=== PATIENT | female | born 1950 | race Caucasian/White ===

== ENCOUNTER 2016-09-13 14:20 | Outpatient (RCR) | payer OTHER ==
--- NOTE | 2016-10-11 07:58 | RADONC ---
RADIATION ONCOLOGY PROGRESS NOTE DATE: 10/10/2016 Ms. Peoples is presently at a dose of 1980 cGy to her left breast and is tolerating treatments quite well at this point with no complaints related to her radiation therapy. She is having no breast or bone pain. The patient's review of systems is noncontributory. She denies nausea, vomiting, fevers, chills, night sweats, diplopia, headaches, anxiety or depression, anorexia, weight loss, visual disturbances, chest pain, urinary or bowel difficulties, bone pain, or neurological problems. PHYSICAL EXAMINATION: The patient's skin is in good condition with no evidence of moist or dry desquamation. The remainder of her physical exam remains unchanged. Ms. Peoples is tolerating treatments quite well and radiation will continue as scheduled.
== END 2016-10-11 ==
LOC: M ONCR 14:20
PROVIDERS: ATTEND Radiology Radiation Oncology
DX: C50.812 Malignant neoplasm of overlapping sites of left female breast (principal)

== ENCOUNTER → 2016-09-13 | Outpatient (REF) | payer OTHER ==
[2016-09-13 21:01] LABS: CARCINOEMBRYONIC ANTIGEN 1.5 NG/ML (<2.5)
== END ==
LOC: M LAB REF 17:49
PROVIDERS: ATTEND Internal Medicine Medical Oncology
DX: C50.919 Malignant neoplasm of unspecified site of unspecified female breast (principal)

== ENCOUNTER → 2016-09-14 | Outpatient (CLI) | payer MEDICARE | END | disposition home or self-care (01) | LOC: M RAD 13:52 | PROVIDERS: ATTEND Radiology Radiation Oncology | DX: C50.919 Malignant neoplasm of unspecified site of unspecified female breast (principal) ==

== ENCOUNTER → 2016-09-27 | Outpatient (CLI) | payer MEDICARE ==
--- NOTE | 2016-09-29 14:27 | DEXA ---
AP SPINE L1 - L4 1.092 -0.8 0.5 LT FEMUR TOTAL 0.745 -2.1 -1.0 RT FEMUR TOTAL 0.652 -2.8 -1.8 TOTAL BODY TOTAL OTHER DUAL FEMUR FRAX* ASSESSMENT Risk factors: None. 10 year probability of fracture Major osteoporotic fracture 14.0% Hip fracture 3.2 % COMMENTS: Normal bone densitometry of the spine. There is low bone density of the left hip. There is osteoporosis of the right hip. There is degenerative change in the spine which may artificially elevate the BMD. FOLLOW-UP: Recommendation for the next bone density exam: 2 years. SKY
== END ==
LOC: M WHC 14:23
PROVIDERS: ATTEND Internal Medicine Medical Oncology
DX: C50.919 Malignant neoplasm of unspecified site of unspecified female breast (principal); M81.0 Age-related osteoporosis without current pathological fracture

== ENCOUNTER → 2016-09-27 | Outpatient (CLI) | payer MEDICARE ==
[~2016-09-27] MED LIST: ISOVUE-370 76% 100ML VIAL (Q9967) As Ordered ONE
--- NOTE | 2016-09-27 17:05 | REP ---
CT abdomen and pelvis 09/27/2016, performed without as well as with IV contrast and delayed postcontrast imaging of the abdomen. Indication: Staging breast cancer. Comparison: None. Technique: Initially, unenhanced CT of the abdomen was performed. Following IV contrast injection of 100 ml Isovue 370 mg/ml IV, 3 mm contiguous spiral axial sections were performed through the abdomen and pelvis in the portal venous phase. 1 minute delayed images were subsequently performed of the abdomen. Findings: 11.5 mm cyst is present in the inferior most portion of posterior segment right lobe of liver. Liver is enlarged, 20 cm in craniocaudal dimension. A few small hypodensities within the spleen do fill in with contrast and delayed imaging and are most compatible with areas of sinusoidal infiltration. Pancreas, gallbladder, and adrenal glands are normal. There are small bilateral extrarenal pelves. 4.7 cm hiatal hernia is identified. Small bowel is without obstruction. Terminal ileum and appendix are normal. There are no pathologically enlarged retroperitoneal lymph nodes or pelvic adenopathy. Bladder is unremarkable. Uterus is absent. There is moderate sigmoid diverticulosis. Mural thickening is seen within the distal transverse colon and splenic flexure, which may be secondary to spasm or less likely fixed narrowing. There is no free air or ascites. Advanced degenerative disc changes are noted L2-3 and L5-S1. Impression 1. 11.5 mm cyst present within the inferior most portion of posterior segment right lobe of the liver. A few small hypodense foci within the spleen, which partially fill in contrast over time, likely areas of sinusoidal infiltration. 2. 4.7 cm retrocardiac hiatal hernia. 3. Moderate sigmoid diverticulosis. 4. Transient mural thickening in distal transverse and proximal sigmoid colon are most compatible with spasm and less likely fixed narrowing. follow up is recommended. 5. Hepatomegaly with liver 20 cm in length. Unreviewed MTDD
--- NOTE | 2016-09-27 18:00 | REP ---
CT chest with IV contrast, 09/27/2016: Indication: Staging breast cancer. Comparison: None. Technique: Following IV contrast administration with 100 ml Isovue 370 mg/ml, 3 mm contiguous spiral axial sections were performed through the chest. Findings: The thoracic aorta is without aneurysm or dissection. The heart is of normal size. There are no pathologically enlarged mediastinal or hilar nodes. A small amount of biapical pleural parenchymal disease is most compatible with fibrotic scarring. 2 mm calcified granuloma is present within the right apex on image 18, series 504. Ground glass type patchy bibasilar interstitial infiltrates are seen with lower lobe and peripheral predominance. There are no pleural effusions. There are no visualized lytic or blastic lesions of bone. Multiple surgical clips are seen within the left axilla. Postsurgical changes are also seen in the left breast and there is left circumareolar skin thickening. Impression 1. No pathologically enlarged mediastinal or hilar adenopathy. Patchy interstitial type infiltrates and/or scarring noted with lower lobe and peripheral predominance bilaterally. 2. 2 mm calcified granuloma within the anterior right lung apex. 3. Postsurgical changes within the left axilla and in the left breast. 4. 4.7 cm retrocardiac hiatal hernia. Signed by Dali Bliss MD 09/27/2016 09:52 P
== END ==
LOC: M RAD 15:25
PROVIDERS: ATTEND Internal Medicine Medical Oncology
DX: C50.919 Malignant neoplasm of unspecified site of unspecified female breast (principal); K57.30 Diverticulosis of large intestine without perforation or abscess without bleeding; M51.36 Other intervertebral disc degeneration, lumbar region; M51.37 Other intervertebral disc degeneration, lumbosacral region; K44.9 Diaphragmatic hernia without obstruction or gangrene; R16.0 Hepatomegaly, not elsewhere classified; K76.89 Other specified diseases of liver; M81.0 Age-related osteoporosis without current pathological fracture
CPT/HCPCS: 71260; 74178; 77080; Q9967

== ENCOUNTER 2016-10-12 11:17 | Outpatient (RCR) | payer MEDICARE ==
--- NOTE | 2016-10-18 13:30 | RADONC ---
RADIATION ONCOLOGY PROGRESS NOTE DATE: 10/17/2016 CHART NUMBER: [id number] Ms. Peoples is presently at a dose of 2880 cGy to her left breast and is tolerating treatments quite well at this point with no complaints related to her radiation therapy. She is having no breast or bone pain. The patient's review of systems is noncontributory. She denies nausea, vomiting, fevers, chills, night sweats, diplopia, headaches, anxiety or depression, anorexia, weight loss, visual disturbances, chest pain, urinary or bowel difficulties, bone pain, or neurological problems. PHYSICAL EXAMINATION: The patient's skin is in good condition with no evidence of moist or dry desquamation. The remainder of her physical exam remains unchanged. Ms. Peoples is tolerating treatments quite well, and radiation will continue as scheduled.
[2016-10-20] MEDS ORDERED: SILV-4 TOP (11:27)
--- NOTE | 2016-10-25 11:11 | RADONC ---
RADIATION ONCOLOGY PROGRESS NOTE DATE: 10/24/2016 CHART NUMBER: [id number] Ms. Peoples is thus far at a dose of 3060 centigrade and was last treated on 10/19/2016. She is presenting today for reevaluation prior to reinitiation of treatment. The patient reports that her skin feels better at this time and she is having less discomfort. She is continuing to use the Silvadene cream as prescribed. REVIEW OF SYSTEMS: The patient's review of systems is positive for some continued tenderness in the inframammary region but is otherwise noncontributory. Denies nausea, vomiting, fevers, chills, night sweats, diplopia, headaches, anxiety or depression, anorexia, weight loss, visual disturbances, chest pain, urinary or bowel difficulties, bone pain, or neurological problems. PHYSICAL EXAMINATION: The patient's skin overall is in excellent condition, except a small area of erythema in the inframammary region. The remainder of physical exam remains unchanged. Ms. Peoples is tolerating treatments quite well, has been off for 2 days and is now ready to resume therapy. She will continue with her Silvadene use. Edited: 10/26/2015 0528
--- NOTE | 2016-11-02 09:58 | RADONC ---
RADIATION ONCOLOGY SIMULATION NOTE DATE: 10/31/2016 CHART NUMBER: [id number] Ms. Peoples was taken to the linear accelerator today for clinical setup of her left breast electron beam boost field. Setup was accomplished without difficulty or discomfort. Radiation treatment planning is underway and radiation treatments will begin subsequently. An immobilization device was created and will be used throughout the course of treatment. I was physically present throughout the course of electron setup simulation.
--- NOTE | 2016-11-02 14:01 | RADONC ---
RADIATION ONCOLOGY PROGRESS NOTE DATE: 10/31/2016 CHART NUMBER: [id number] Ms. Peoples is presently a dose of 4320 cGy to her left breast and is tolerating treatments quite well at this point with no complaints related to her radiation therapy other than some tenderness of the skin. REVIEW OF SYSTEMS; The patient's review of systems is positive for skin tenderness, but is otherwise noncontributory. She denies nausea, vomiting, fevers, chills, night sweats, diplopia, headaches, anxiety or depression, anorexia, weight loss, visual disturbances, chest pain, urinary or bowel difficulties, bone pain, or neurological problems. PHYSICAL EXAMINATION: The patient's skin shows some erythema present but overall is in good condition with no evidence of moist or dry desquamation. The remainder of her physical exam remains unchanged. Ms. Peoples is tolerating treatments quite well and radiation will continue as scheduled.
--- NOTE | 2016-11-07 12:47 | RADONC ---
RADIATION ONCOLOGY PROGRESS NOTE DATE: 11/07/2016 CHART NUMBER: [id number] PROGRESS NOTE: Ms. Peolpes is presently at a dose of 5060 cGy to her left breast primary site boost and is tolerating treatments quite well at this point with no significant complaints related to her radiation therapy. She does have some skin tenderness. She also some erythema of the skin. REVIEW OF SYSTEMS: The patient's review of systems is positive for tenderness of the skin and reddening of the skin but is otherwise noncontributory. The patient's review of systems is noncontributory. Denies nausea, vomiting, fevers, chills, night sweats, diplopia, headaches, anxiety or depression, anorexia, weight loss, visual disturbances, chest pain, urinary or bowel difficulties, bone pain, or neurological problems. PHYSICAL EXAMINATION: The patient's skin is in good condition with no evidence of moist or dry desquamation. There is brisk erythema present. The remainder of physical exam remains unchanged. Ms. Campbell is tolerating treatments quite well and radiation will continue as scheduled.
== END 2016-11-08 ==
LOC: M ONCR 11:17
PROVIDERS: ATTEND Radiology Radiation Oncology
DX: C50.812 Malignant neoplasm of overlapping sites of left female breast (principal)

== ENCOUNTER 2016-11-09 09:50 | Outpatient (RCR) | payer OTHER, MEDICARE ==
[~2016-11-09 09:50] MED LIST changes: -ISOVUE-370 76% 100ML VIAL (Q9967) As Ordered ONE; +SILV-4 TOP
--- NOTE | 2016-11-14 13:27 | RADONC ---
RADIATION ONCOLOGY PROGRESS NOTE DATE: 11/14/2016 CHART NUMBER: [id number]. PROGRESS NOTE: Ms. Peoples is presently at a dose of 5860 cGy to her left breast primary site boost and is tolerating treatments quite well at this point with no complaints related to her radiation therapy. She is not at this time having any breast or bone pain. REVIEW OF SYSTEMS: The patient's review of systems is noncontributory. Denies nausea, vomiting, fevers, chills, night sweats, diplopia, headaches, anxiety or depression, anorexia, weight loss, visual disturbances, chest pain, urinary or bowel difficulties, bone pain, or neurological problems. PHYSICAL EXAMINATION: The patient's skin overall is in generally good condition. She does have some brisk erythema and tanning present. The remainder of her physical exam remains unchanged. Ms. Peoples is tolerating treatments quite well and radiation will continue as scheduled.
--- NOTE | 2016-11-15 13:26 | RADONC ---
RADIATION ONCOLOGY TREATMENT SUMMARY DATE: 11/15/2016 CHART NUMBER: [id number]. DIAGNOSIS: Left breast cancer. STAGE: IA, pT1cN0(it)(sn)M0. ECOG PERFORMANCE STATUS: 0. TREATMENT SUMMARY: Ms. 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 We treated the patient to the left breast for a total dose of 4860 cGy delivered in 27 fractions of 180 cGy each over 39 elapsed days from 09/26/2016 through 11/04/2016. The patient's left breast was treated on linear accelerator utilizing a combination of 18X, 6X photon beams via 3-D conformal technique with medial and lateral tangential weeks. Following completion of 4860 cGy, the entire left breast and primary site was boosted for an additional 1200 cGy delivered in six fractions of 200 cGy each from 11/07/2016 through 11/15/2016. The patient's primary site boost was treated on a linear accelerator utilizing a 12 MeV electron beam prescribed to the 90% isodose line via non phos technique. This brought the primary site to a total dose of 6060 cGy delivered in 33 fractions over 50 elapsed days from 09/26/2016 through 11/15/2016. Ms. Peoples tolerated her treatments quite well and was able complete therapy as prescribed. I have scheduled the patient to see me again in 1 month for further followup. She will also continue to be followed by her other physicians as well. cc: *Sahara Zhang MD *JOVON Bunn *Saul Schafer MD
== END 2016-12-09 ==
LOC: M ONCR 09:50
PROVIDERS: ATTEND Radiology Radiation Oncology
DX: C50.812 Malignant neoplasm of overlapping sites of left female breast (principal)

== ENCOUNTER → 2016-12-28 | Outpatient (CLI) | payer MEDICARE ==
--- NOTE | 2016-12-28 16:08 | REP ---
RIGHT FOOT, FOUR VIEWS: HISTORY: Right heel pain. There is no acute fracture or dislocation. There is hallux valgus deformity of the 1st metatarsal phalangeal joint. There is narrowing of the joint space with irregularity of the head of the first metatarsal. A small osteophyte is present on the inferior calcaneus. IMPRESSION: Degenerative change as described above. Signed by Everett Nunes MD 12/28/2016 04:10 P
== END ==
LOC: M RAD 15:19
PROVIDERS: ATTEND Nurse Practitioner Adult Health
DX: M79.671 Pain in right foot (principal); M19.071 Primary osteoarthritis, right ankle and foot

== ENCOUNTER → 2017-01-04 | Outpatient (CLI) | payer MEDICARE ==
--- NOTE | 2017-01-10 13:30 | RADONC ---
RADIATION ONCOLOGY FOLLOWUP NOTE DATE: 01/04/2017 CHART NUMBER: [id number] DIAGNOSIS: Left breast cancer. STAGE: IA, pT1cN0 (it)(sn) M0. ECOG PERFORMANCE STATUS: 0 FOLLOWUP NOTE: Ms. Peoples is a very pleasant 66-year-old white female with the diagnosis of a stage IA, pT1cN0 (it)(sn) M0 well differentiated infiltrating ductal carcinoma of the left breast who is presenting to us today for routine followup visit 1 month post completion of external beam radiation therapy. The patient presents today reporting that she is doing quite well with no complaints at this time related to her radiation therapy or disease. She is having no breast or bone pain. REVIEW OF SYSTEMS: The patient's review of systems is noncontributory. She denies nausea, vomiting, fevers, chills, night sweats, diplopia, headaches, anxiety or depression, anorexia, weight loss, visual disturbances, chest pain, urinary or bowel difficulties, bone pain, or neurological problems. PHYSICAL EXAMINATION: The patient is a well-developed, well-nourished white female in no acute distress. HEENT exam is normocephalic, atraumatic. Extraocular movements are intact. There is no palpable cervical, supraclavicular, infraclavicular, axillary, or inguinal lymphadenopathy present. Lungs are clear to auscultation and percussion. Heart has a regular rate and rhythm. Abdomen is benign with no hepatosplenomegaly, masses, or tenderness. Breast examination reveals no masses or discharge bilaterally. Skeletal examination reveals no tenderness to pressure or percussion of the bony skeleton. Extremities reveal no clubbing, cyanosis, or edema. Neurologic exam is grossly intact, as is the remainder of the physical examination. ASSESSMENT: The patient is clinically doing well at this point and be seen by us again in 6 months for further followup. She will also continue to be followed by her other physicians as well. cc: *Sahara Zhang MD *JOVON Bunn *Saul Schafer MD
== END ==
LOC: M ONCR 14:12
PROVIDERS: ATTEND Radiology Radiation Oncology
DX: C50.812 Malignant neoplasm of overlapping sites of left female breast (principal)

== ENCOUNTER → 2017-05-05 | Outpatient (CLI) | payer MEDICARE ==
[2017-05-05 14:56] LABS: BASO % 0.5 % (0.0-1.0); EOS % 1.2 % (0.0-3.0); LARGE UNSTAINED CELL # 0.1 K/mm3 (0.0-0.4); LARGE UNSTAINED CELL % 2.5 % (0.0-4.0); LYMPH # 1.2 K/mm3 (1.5-4.5); LYMPH % 24.3 % (24.0-44.0); MEAN CORPUSCULAR HEMOGLOBIN 31.7 pg (27.0-33.0); MEAN CORPUSCULAR HGB CONC 34.3 g/dl (32.0-36.5); MEAN CORPUSCULAR VOLUME 92.3 fl (80.0-96.0); MONO # 0.3 K/mm3 (0.0-0.8); MONO % 5.7 % (0.0-5.0); NEUTROPHILS # 2.9 K/mm3 (1.8-7.7); NEUTROPHILS % 65.7 % (36.0-66.0); PLATELET COUNT, AUTOMATED 181 k/mm3 (150-450); RED CELL DISTRIBUTION WIDTH 12.2 % (11.5-14.5); WHITE BLOOD COUNT 4.4 K/mm3 (4.0-10.0)
[2017-05-12 00:07] LABS: Lyme Disease IgG/IgM Antibodie <0.91 ISR (0.00-0.90); Lyme Disease IgM Ab Quantitati <0.80 index (0.00-0.79); MAGNESIUM RBC LEVEL 4.6 mg/dL (4.2-6.8)
== END ==
LOC: M LAB 13:28
PROVIDERS: ATTEND Nurse Practitioner Pediatrics
DX: F33.1 Major depressive disorder, recurrent, moderate (principal); K50.90 Crohn's disease, unspecified, without complications; R53.81 Other malaise

== ENCOUNTER → 2017-05-19 | Outpatient (REF) | payer MEDICARE ==
[2017-05-19 12:12] LABS: CORTISOL AM 25.8 UG/DL (4.3-22.4); THYROID PEROXIDASE ANTIBODY 32.7 U/ML (<60.0)
[2017-05-19 12:13] LABS: VITAMIN B12 LEVEL 263 PG/ML (247-911)
[2017-05-19 12:20] LABS: FREE T4 1.31 NG/DL (0.76-1.46)
[2017-05-23 14:14] LABS: GLUTATHIONE QT 214 ug/mL (176-323)
== END ==
LOC: M LABDRAW1 11:16
PROVIDERS: ATTEND Nurse Practitioner Pediatrics
DX: F33.1 Major depressive disorder, recurrent, moderate (principal); K59.00 Constipation, unspecified

== ENCOUNTER → 2017-06-28 | Outpatient (CLI) | payer MEDICARE ==
--- NOTE | 2017-06-29 07:22 | RADONC ---
RADIATION ONCOLOGY FOLLOWUP NOTE DATE: 06/28/2017 CHART NUMBER: [id number]. DIAGNOSIS: Left breast cancer. STAGE: IA, pT1cN0(it)(sn)M0. ECOG PERFORMANCE STATUS: Zero. FOLLOWUP NOTE: Ms. Peoples is a very pleasant, 67-year-old white female with the diagnosis of a stage IA, pT1cN0(it)(sn)M0 well-differentiated infiltrating ductal carcinoma of left breast who is presenting to us today for routine followup visit 8 months post completion of external beam radiation therapy. The patient presents today reporting that she is doing quite well with no complaints at this time related to her radiation therapy or disease. She has no breast or bone pain. REVIEW OF SYSTEMS: The patient's review of systems is noncontributory. Denies nausea, vomiting, fevers, chills, night sweats, diplopia, headaches, anxiety or depression, anorexia, weight loss, visual disturbances, chest pain, urinary or bowel difficulties, bone pain, or neurological problems. PHYSICAL EXAMINATION: The patient is a well-developed, well-nourished, 67-year-old white female, in no acute distress. HEENT exam is normocephalic, atraumatic. Extraocular movements are intact. There is no palpable cervical, supraclavicular, infraclavicular, axillary, or inguinal lymphadenopathy present. Lungs are clear to auscultation and percussion. Heart has a regular rate and rhythm. Abdomen is benign with no hepatosplenomegaly, masses, or tenderness. Breast examination reveals no masses or discharge bilaterally. Skeletal examination reveals no tenderness to pressure or percussion of the bony skeleton. Extremities reveal no clubbing, cyanosis, or edema. Neurologic exam is grossly intact, as is the remainder of the physical examination. ASSESSMENT: The patient is clinically CARLI at this time and will be seen by us again in 6 months for further followup. She will also continue to be followed by her other physicians as well. The patient reports being very anxious. Apparently she is aware and has been reading her previous CT scan report from 9 months ago, done in September, which showed a small granuloma. She is worried that this could be early metastatic disease. In light of this, I have ordered a new followup CT scan to be undertaken of the chest to follow this small lesion. The patient will also be followed by her other physicians as well. cc: MD Saul Rodriguez MD Linda Moser, JOVON Zhang MD
== END ==
LOC: M ONCR 14:23
PROVIDERS: ATTEND Radiology Radiation Oncology
DX: C50.912 Malignant neoplasm of unspecified site of left female breast (principal)

== ENCOUNTER → 2017-07-06 | Outpatient (CLI) | payer MEDICARE ==
[~2017-07-06] MED LIST changes: +ISOVUE-370 76% 100ML VIAL (Q9967) As Ordered ONE
--- NOTE | 2017-07-06 12:53 | REP ---
CT of the chest with IV contrast: Comparison is 09/27/2016. The patient has known breast carcinoma. There are surgical clips in the left breast in the left axilla. These are unchanged. On a prior study there was a 2 mm right upper lobe lung nodule. This nodule today measures 3 mm. There are no other lung nodules or masses. There is a ground-glass pattern in the lower lobes bilaterally, unchanged, possibly dependent atelectasis or possibly chronic lung disease. There is slight irregularity of the pleural surface in the left upper lobe anterolaterally, and this is an interval change. This may represent postradiation change. There are no pleural effusions. There is no mediastinal or hilar adenopathy. There is no axillary adenopathy. There is no enlarging density in the left breast. The thoracic aorta is unremarkable. Cardiac size is normal. The visualized upper abdominal contents are unremarkable. Impression: The patient's known right upper lobe lung nodule today measures 3 mm. This measured 2 mm previously. There are findings compatible with postradiation change along the pleural surface of the left upper lobe. Chronic ground-glass pattern in the lower lung weeks bilaterally, may represent chronic lung disease. Alternatively this could represent dependent atelectasis. Hiatal hernia is again noted, unchanged. Signed by Homer Del Real MD 07/06/2017 12:44 P
== END ==
LOC: M RAD 10:48
PROVIDERS: ATTEND Radiology Radiation Oncology
DX: R91.1 Solitary pulmonary nodule (principal); Z85.3 Personal history of malignant neoplasm of breast
CPT/HCPCS: 71260; Q9967

== ENCOUNTER → 2018-02-07 | Outpatient (CLI) | payer MEDICARE | LOC: M ONCR 13:45 | DX: C50.812 Malignant neoplasm of overlapping sites of left female breast (principal); Z92.3 Personal history of irradiation | CPT/HCPCS: G0463 ==

== ENCOUNTER → 2018-07-25 | Outpatient (CLI) | payer MEDICARE | LOC: M ONCR 14:08 | DX: C50.912 Malignant neoplasm of unspecified site of left female breast (principal) | CPT/HCPCS: G0463 ==

== ENCOUNTER → 2018-08-07 | Outpatient (CLI) | payer MEDICARE ==
[~2018-08-07] MED LIST changes: +ISOVUE-370 76% 100ML VIAL (Q9967) As Ordered; -ISOVUE-370 76% 100ML VIAL (Q9967) As Ordered ONE; -SILV-4 TOP
== END ==
LOC: M RAD 12:57
DX: R91.1 Solitary pulmonary nodule (principal); Z85.3 Personal history of malignant neoplasm of breast
CPT/HCPCS: Q9967

== ENCOUNTER 2019-01-21 13:13 | Emergency (ER) | payer MEDICARE ==
[~2019-01-21] VITALS: Ht 167.6 cm; Wt 68.2 kg
[~2019-01-21 13:13] MED LIST changes: -ISOVUE-370 76% 100ML VIAL (Q9967) As Ordered; +SILV-4 TOP
[2019-01-21] MEDS ORDERED: LORA0.5T11 (13:28)
[2019-01-21] MEDS ORDERED: FOCA10TA (13:28)
[2019-01-21] MEDS ORDERED: DEXM25CA (13:28)
[2019-01-21] MEDS ORDERED: MIRT1TAB15 (13:28)
[2019-01-21] MEDS ORDERED: LORazepam 2 MG/ML VIAL (J2060) IV STA (13:51)
--- NOTE | 2019-01-21 14:54 | REP ---
CT Head without contrast HISTORY: Memory loss COMPARISON: None Areas of decreased attenuation are present in the periventricular white matter. This represents small-vessel ischemic disease. There is no intraparenchymal hemorrhage, acute infarct, mass or midline shift. The ventricular system and cortical sulci are dilated consistent with minimal volume loss. There is no extra cerebral collection. There is no fracture. The visualized sinuses are clear. IMPRESSION: 1. Small vessel ischemic disease. 2. Minimal volume loss. Electronically Signed by Everett Nunes MD 01/21/2019 02:45 P
[2019-01-21 17:09] LABS: HEMATOCRIT 43.1 % (36.0-47.0); HEMOGLOBIN 14.6 g/dl (12.0-15.5); MEAN CORPUSCULAR HEMOGLOBIN 30.5 pg (27.0-33.0); MEAN CORPUSCULAR HGB CONC 33.9 g/dl (32.0-36.5); MEAN CORPUSCULAR VOLUME 90.2 fl (80.0-96.0); PLATELET COUNT, AUTOMATED 198 10^3/uL (150-450); RED BLOOD COUNT 4.78 10^6/uL (4.00-5.40); WHITE BLOOD COUNT 6.1 10^3/uL (4.0-10.0)
[2019-01-21 17:14] LABS: BLOOD UREA NITROGEN 10 MG/DL (7-18); CALCIUM LEVEL 8.5 MG/DL (8.8-10.2); CARBON DIOXIDE LEVEL 19 MEQ/L (21-32); CHLORIDE LEVEL 109 MEQ/L (98-107); CREATININE FOR GFR 0.83 MG/DL (0.55-1.30); GLOMERULAR FILTRATION RATE > 60.0 (>45); GLUCOSE, FASTING 126 MG/DL (70-100); POTASSIUM SERUM 3.5 MEQ/L (3.5-5.1); SODIUM LEVEL 141 MEQ/L (136-145)
--- NOTE | 2019-01-21 17:18 | REP ---
MRA Brain without contrast History: Memory loss 3-D [id number] MR angiography was performed at the level of the marshall of [place]. There is no aneurysm or arteriovenous malformation. There is ectasia of the distal cervical internal carotid arteries. Mild atherosclerotic disease involves the cavernous internal carotid arteries right middle cerebral artery trifurcation and the distal vertebral arteries. There is origin of the left posterior cerebral artery. Major intracranial vessels are patent. The vertebral arteries are equal in size. Impression: 1. There is no aneurysm or arteriovenous malformation 2. Atherosclerotic disease as described above. Electronically Signed by Everett Nunes MD 01/21/2019 05:09 P
--- NOTE | 2019-01-21 17:38 | REP ---
MR BRAIN WITHOUT CONTRAST: HISTORY: Memory loss. COMPARISON: CT 01/21/2019. Areas of increased signal intensity on T2 weighted images are present in the basal ganglia and internal capsules. These represent old lacunar infarctions. Areas of increased signal intensity on T2 weighted images are present in the periventricular and subcortical white matter. This represents small vessel ischemic disease. There is no intraparenchymal hemorrhage, acute infarct, mass or midline shift. A 5 mm right choroid fissure cyst is present. The ventricular system and cortical sulci are dilated consistent with moderate volume loss. There is no extracerebral collection. The sinuses are clear. IMPRESSION:1. 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 2. Small vessel ischemic disease. 3. Minimal volume loss. Electronically Signed by Everett Nunes MD 01/21/2019 05:41 P
[2019-01-21] MEDS ORDERED: ASPI81TA85 PO (18:05)
[2019-01-21 18:22] VITALS: BP 114/73
== END 2019-01-21 18:23 | disposition home or self-care (01) ==
LOC: M ED 13:13
DX: G45.4 Transient global amnesia (principal); F41.1 Generalized anxiety disorder; I67.82 Cerebral ischemia; I67.2 Cerebral atherosclerosis; I65.23 Occlusion and stenosis of bilateral carotid arteries; Z85.3 Personal history of malignant neoplasm of breast; F90.9 Attention-deficit hyperactivity disorder, unspecified type; Z79.899 Other long term (current) drug therapy
CPT/HCPCS: 70450; 70544; 70551; 80048; 85027; 96374; 99284; J2060

== ENCOUNTER → 2019-02-06 | Outpatient (CLI) | payer MEDICARE ==
[~2019-02-06] MED LIST changes: +ASPI81TA85 PO; +DEXM25CA; +FOCA10TA; +LORA0.5T11; +MIRT1TAB15
--- NOTE | 2019-02-07 07:19 | RADONC ---
RADIATION ONCOLOGY FOLLOWUP NOTE: DATE: 02/06/2019 CHART NUMBER: [id number] DIAGNOSIS: Left breast cancer. STAGE: I A, pT1cN0 (itn) (ssn) M0. ECOG PERFORMANCE STATUS: 0 Ms. Peoples is a very pleasant 68-year-old white female with the diagnosis of a stage I A, pT1cN0 (itn) (ssn) M0, well-differentiated infiltrating ductal carcinoma left breast who is presenting to us today for routine followup visit 2 years and 3 months post completion of external beam radiation therapy. The patient presents today reporting that she is doing quite well with no complaints at this time related to her radiation therapy or disease. She is having no breast or bone pain. REVIEW OF SYSTEMS: The patient's review of systems is noncontributory. She denies nausea, vomiting, fevers, chills, night sweats, diplopia, headaches, anxiety or depression, anorexia, weight loss, visual disturbances, chest pain, urinary or bowel difficulties, bone pain, or neurological problems. PHYSICAL EXAMINATION: The patient is a well-developed, well-nourished female in no acute distress. HEENT exam is normocephalic, atraumatic. Extraocular movements are intact. There is no palpable cervical, supraclavicular, infraclavicular, axillary, or inguinal lymphadenopathy present. Lungs are clear to auscultation and percussion. Heart has a regular rate and rhythm. Abdomen is benign with no hepatosplenomegaly, masses, or tenderness. Breast examination reveals no masses or discharge bilaterally. Skeletal examination reveals no tenderness to pressure or percussion of the bony skeleton. Extremities reveal no clubbing, cyanosis, or edema. Neurologic exam is grossly intact, as is the remainder of the physical examination. ASSESSMENT: The patient is clinically doing well at this point. She is being followed closely by her physicians in [place] who are ordering mammography there. In light of her close followup by her [place] physicians, I have discharged her from my followup except on a p.r.n. basis. cc: MD Sierra Ramey MD Linda Moser, JOVON Zhang MD
== END ==
LOC: M ONCR 13:54
PROVIDERS: ATTEND Radiology Radiation Oncology
DX: C50.812 Malignant neoplasm of overlapping sites of left female breast (principal)

== ENCOUNTER → 2019-02-16 | Outpatient (CLI) | payer MEDICARE ==
[2019-02-16 10:56] LABS: HEMOGLOBIN A1c 5.1 %
[2019-02-16 11:09] LABS: BLOOD UREA NITROGEN 14 MG/DL (7-18); CHOLESTEROL LEVEL 239 MG/DL (<200); CHOLESTEROL RISK RATIO 3.414 (<5); CREATININE FOR GFR 0.69 MG/DL (0.55-1.30); FREE T4 1.08 NG/DL (0.76-1.46); GLOMERULAR FILTRATION RATE > 60.0 (>45); HDL CHOLESTEROL 70 MG/DL (>40); LDL CHOLESTEROL 157 MG/DL (<100); NON-HDL-C 169 MG/DL; TRIGLYCERIDES LEVEL 59 MG/DL (<150)
== END ==
LOC: M LAB 10:03
PROVIDERS: ATTEND Psychiatry & Neurology Neurology
DX: E11.9 Type 2 diabetes mellitus without complications (principal); E03.9 Hypothyroidism, unspecified; E78.5 Hyperlipidemia, unspecified; Z86.73 Personal history of transient ischemic attack (TIA), and cerebral infarction without residual deficits

== ENCOUNTER → 2019-05-09 | Outpatient (REF) | payer MEDICARE ==
[2019-05-09 12:21] LABS: BASO % 1.1 % (0.0-1.0); EOS # 0.1 10^3/uL (0.0-0.50); EOS % 3.8 % (0.0-3.0); HEMOGLOBIN 13.8 g/dl (12.0-15.5); LYMPH # 1.3 10^3/uL (1.5-4.5); LYMPH % 34.2 % (24.0-44.0); MEAN CORPUSCULAR HEMOGLOBIN 30.2 pg (27.0-33.0); MEAN CORPUSCULAR HGB CONC 33.7 g/dl (32.0-36.5); MEAN CORPUSCULAR VOLUME 89.7 fl (80.0-96.0); MONO # 0.4 10^3/uL (0.0-0.8); MONO % 11.7 % (0.0-5.0); NEUTROPHILS # 1.8 10^3/uL (1.8-7.7); NEUTROPHILS % 49.2 % (36.0-66.0); PLATELET COUNT, AUTOMATED 182 10^3/uL (150-450); RED BLOOD COUNT 4.57 10^6/uL (4.00-5.40); WHITE BLOOD COUNT 3.7 10^3/uL (4.0-10.0)
[2019-05-09 12:43] LABS: ERYTHROCYTE SEDIMENTATION RATE 12 mm/hr (0-30)
[2019-05-09 14:19] LABS: ALBUMIN 3.2 GM/DL (3.2-5.2); ALT/SGPT 31 U/L (12-78); BILIRUBIN,TOTAL 0.6 MG/DL (0.2-1.0); BLOOD UREA NITROGEN 11 MG/DL (7-18); C REACTIVE PROTEIN QUANTITATIV < 0.30 MG/DL (0.00-0.30); CALCIUM LEVEL 8.5 MG/DL (8.8-10.2); CARBON DIOXIDE LEVEL 25 MEQ/L (21-32); CHLORIDE LEVEL 109 MEQ/L (98-107); CREATININE FOR GFR 0.65 MG/DL (0.55-1.30); FREE T3 2.7 PG/ML (2.2-4.0); FREE T4 1.15 NG/DL (0.76-1.46); GLOMERULAR FILTRATION RATE > 60.0 (>45); GLUCOSE, FASTING 88 MG/DL (70-100); IMMUNOGLOBULIN G 884 MG/DL (681-1648); RHEUMATOID FACTOR QUANT 44.1 IU/ML (<15.0); SODIUM LEVEL 141 MEQ/L (136-145); TOTAL 25(OH) VITAMIN D 33.1 NG/ML (30.0-100.0); TOTAL PROTEIN 6.4 GM/DL (6.4-8.2); VITAMIN B12 LEVEL 405 PG/ML (247-911)
[2019-05-14 14:58] LABS: ANTINUCLEAR ANTIBODIES DIRECT Negative (Negative); EBV VIRAL CAPSID AG IgM <36.0 U/mL (0.0-35.9); Lyme Disease IgG/IgM Antibodie <0.91 ISR (0.00-0.90); Lyme Disease IgM Ab Quantitati <0.80 index (0.00-0.79); Methylmalonic Acid 221 nmol/L (0-378); TISSUE TRANSGLUTAMINASE IgA <2 U/mL (0-3); TISSUE TRANSGLUTAMINASE IgG <2 U/mL (0-5); UNITSIGA FOR GLIADIN IGA 20 units (0-19); UNITSIGG FOR GLIADIN IGG 2 units (0-19)
== END ==
LOC: M LABDRAW1 11:29
PROVIDERS: ATTEND Nurse Practitioner Pediatrics
DX: F33.1 Major depressive disorder, recurrent, moderate (principal); M05.49 Rheumatoid myopathy with rheumatoid arthritis of multiple sites; R53.81 Other malaise; K59.00 Constipation, unspecified

== ENCOUNTER → 2019-10-17 | Outpatient (CLI) | payer MEDICARE ==
[~2019-10-17] MED LIST changes: -LORA0.5T11; +LORA0.5T5
== END ==
LOC: M WHC 12:54
PROVIDERS: ATTEND Internal Medicine Rheumatology
DX: M81.0 Age-related osteoporosis without current pathological fracture (principal)

== ENCOUNTER → 2020-10-01 | Outpatient (CLI) | payer MEDICARE ==
[~2020-10-01] MED LIST changes: -ASPI81TA85 PO; +ASPI81TA86 PO; +ISOVUE-370 76% 100ML VIAL As Ordered ONE
--- NOTE | 2020-10-01 14:26 | REP ---
INDICATION: NODULE LUNG. COMPARISON: Comparison is made with CT study of the chest from August 07, 2018, July 06, 2017, and September 27, 2016.. TECHNIQUE: Helical scanning is acquired following the intravenous injection of 75 mL of Isovue 370. 3 mm axial images are re-formatted. Coronal and sagittal MPR and coronal MIP images are provided. FINDINGS: Previously noted 3 mm right apical pulmonary nodule is again seen completely unchanged in the interval since the September 27, 2016 prior study. The highest Hounsfield unit pixels density in this nodule today is 207 Hounsfield units which implies calcification. In any event it is stable for 4 years and is considered benign. In the left apex there is a somewhat linear area of stable fibrosis anteriorly as well. 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 These findings are stable as well. Postoperative changes and surgical clips are noted in the left breast soft tissues. No extra thoracic mass or adenopathy is seen. No bony destructive lesion is seen. There is a moderate to large hiatal hernia again noted behind the heart. There are areas of parenchymal chronic fibrosis in the lower lobes bilaterally unchanged. No hilar or mediastinal mass or adenopathy is seen. No filling defect is seen in the pulmonary arterial tree to suggest pulmonary embolus. The thoracic aorta enhances homogeneously without evidence of dissection. AP dimension of the ascending aorta at the level of the right main pulmonary artery is 3.5 cm. IMPRESSION: Large hiatal hernia again noted. 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 Stable 3 mm right apical nodule unchanged over 4 years and considered benign. <Electronically signed by Carlyle Bartholomew > 10/01/20 [id number]
== END ==
LOC: M RAD 13:33
PROVIDERS: ATTEND Family Medicine
DX: R91.8 Other nonspecific abnormal finding of lung field (principal); J84.10 Pulmonary fibrosis, unspecified; K44.9 Diaphragmatic hernia without obstruction or gangrene; Z92.3 Personal history of irradiation
CPT/HCPCS: 71260; Q9967

== ENCOUNTER → 2021-02-24 | Outpatient (CLI) | payer MEDICARE ==
[~2021-02-24] MED LIST changes: -ISOVUE-370 76% 100ML VIAL As Ordered ONE
[2021-02-24 14:58] LABS: FREE T3 2.7 PG/ML (2.2-4.0); FREE T4 1.29 NG/DL (0.76-1.46); THYROID STIMULATING HORMONE 1.13 uIU/ML (0.358-3.740)
[2021-02-25 11:09] LABS: THRYOGLOBULIN ANTIBODIES (ATA) < 1.0 IU/mL (0.0-0.9); THYROGLOBULIN QUANTITATIVE 20.4 ng/mL (1.5-38.5)
== END ==
LOC: M LAB 12:19
PROVIDERS: ATTEND Nurse Practitioner Psychiatric/Mental Health
DX: F41.1 Generalized anxiety disorder (principal)

== ENCOUNTER → 2022-04-20 | Outpatient (CLI) | payer MEDICARE ==
[~2022-04-20] MED LIST changes: -DEXM25CA; +DEXM25CA3; +GASTROGRAFIN SOLUTION 30ML (Q9963) ONE; +ISOVUE-370 76% 100ML VIAL ONE
[2022-04-20 16:21] LABS: BLOOD UREA NITROGEN 11 MG/DL (7-18); CALCIUM LEVEL 8.6 MG/DL (8.8-10.2); CARBON DIOXIDE LEVEL 28 MEQ/L (21-32); CHLORIDE LEVEL 108 MEQ/L (98-107); CREATININE FOR GFR 0.62 MG/DL (0.55-1.30); GLOMERULAR FILTRATION RATE > 60.0 (>39); GLUCOSE, FASTING 73 MG/DL (70-100); POTASSIUM SERUM 4.2 MEQ/L (3.5-5.1); SODIUM LEVEL 140 MEQ/L (136-145)
== END ==
LOC: M PLAIMG 12:08
PROVIDERS: ATTEND Physician Assistant
DX: R10.11 Right upper quadrant pain (principal); K76.89 Other specified diseases of liver

== ENCOUNTER → 2022-04-20 | Outpatient (CLI) | payer MEDICARE ==
[~2022-04-20] MED LIST changes: -GASTROGRAFIN SOLUTION 30ML (Q9963) ONE; -ISOVUE-370 76% 100ML VIAL ONE
== END ==
LOC: M WHC 11:28
PROVIDERS: ATTEND Physician Assistant
DX: M81.0 Age-related osteoporosis without current pathological fracture (principal); M85.851 Other specified disorders of bone density and structure, right thigh; M85.852 Other specified disorders of bone density and structure, left thigh

== ENCOUNTER → 2023-03-22 | Outpatient (CLI) | payer MEDICARE ==
[~2023-03-22] MED LIST changes: +ISOVUE-370 76% 100ML VIAL As Ordered ONE
== END ==
LOC: M RAD 09:37
PROVIDERS: ATTEND Family Medicine
DX: R91.1 Solitary pulmonary nodule (principal)
CPT/HCPCS: 71260; Q9967

== ENCOUNTER → 2023-04-28 | Outpatient (CLI) | payer MEDICARE ==
[~2023-04-28] MED LIST changes: -ISOVUE-370 76% 100ML VIAL As Ordered ONE
[2023-04-28 09:24] LABS: ALBUMIN 3.3 G/DL (3.2-5.2); ALKALINE PHOSPHATASE 78 U/L (46-116); ALT/SGPT 18 U/L (7.0-40); AST/SGOT 14 U/L (<34); BILIRUBIN,TOTAL 0.6 MG/DL (0.3-1.2); BLOOD UREA NITROGEN 14 MG/DL (9-23); CALCIUM LEVEL 8.9 MG/DL (8.3-10.6); CARBON DIOXIDE LEVEL 28 MMOL/L (20-31); CHLORIDE LEVEL 106 MMOL/L (98-107); CREATININE FOR GFR 0.66 MG/DL (0.55-1.30); GLOMERULAR FILTRATION RATE > 60.0 (>39); GLUCOSE, FASTING 90 MG/DL (74-106); POTASSIUM SERUM 4.3 MMOL/L (3.5-5.1); SODIUM LEVEL 142 MMOL/L (136-145); TOTAL PROTEIN 6.5 G/DL (5.7-8.2)
== END ==
LOC: M LAB 08:29
PROVIDERS: ATTEND Internal Medicine Gastroenterology
DX: K76.89 Other specified diseases of liver (principal); K86.2 Cyst of pancreas; K57.90 Diverticulosis of intestine, part unspecified, without perforation or abscess without bleeding

== ENCOUNTER → 2023-05-02 | Outpatient (CLI) | payer MEDICARE ==
[~2023-05-02] MED LIST changes: +ISOVUE-370 76% 100ML VIAL As Ordered ONE
== END ==
LOC: M RAD 09:50
PROVIDERS: ATTEND Internal Medicine Gastroenterology
DX: K86.2 Cyst of pancreas (principal); K76.89 Other specified diseases of liver
CPT/HCPCS: 74160; Q9967

== ENCOUNTER 2024-02-20 06:10 | Inpatient (IN) | payer MEDICARE ==
[~2024-02-20] VITALS: Ht 162.6 cm; Wt 65.9 kg
[2024-02-20] VITALS (8 sets, daily range): BP systolic 127–143; BP diastolic 72–76; TEMP 96.9–98.1; O2SAT 92–98
[~2024-02-20 06:10] MED LIST changes: -FOCA10TA; +FOCA10TA PO; -ISOVUE-370 76% 100ML VIAL As Ordered ONE
[2024-02-20 06:40] LABS: BASO % 0.6 % (0.0-1.0); EOS # 0.1 10^3/uL (0.0-0.5); EOS % 0.7 % (0.0-3.0); HEMATOCRIT 35.9 % (36.0-47.0); LYMPH # 0.9 10^3/uL (1.5-5.0); LYMPH % 13.1 % (24.0-44.0); MEAN CORPUSCULAR HEMOGLOBIN 30.8 pg (27.0-33.0); MEAN CORPUSCULAR HGB CONC 33.4 g/dl (32.0-36.5); MEAN CORPUSCULAR VOLUME 92.1 fl (80.0-96.0); MONO # 0.4 10^3/uL (0.0-0.8); MONO % 6.2 % (2.0-8.0); NEUTROPHILS # 5.3 10^3/uL (1.5-8.5); PLATELET COUNT, AUTOMATED 166 10^3/uL (150-450); WHITE BLOOD COUNT 6.7 10^3/uL (4.0-10.0)
[2024-02-20] MEDS: ONDANSETRON 4MG 2ML VIAL IV ONE (06:54)
[2024-02-20] MEDS: MORPHINE 2 MG/ML 1ML VIAL IV PRN ×2 (06:55→10:18)
[2024-02-20 07:04] LABS: BLOOD UREA NITROGEN 13 MG/DL (9-23); CALCIUM LEVEL 8.4 MG/DL (8.3-10.6); CARBON DIOXIDE LEVEL 26 MMOL/L (20-31); CHLORIDE LEVEL 109 MMOL/L (98-107); CREATININE FOR GFR 0.52 MG/DL (0.55-1.30); GLOMERULAR FILTRATION RATE > 60.0 (>39); GLUCOSE, FASTING 119 MG/DL (74-106); POTASSIUM SERUM 4.2 MMOL/L (3.5-5.1); SODIUM LEVEL 141 MMOL/L (136-145)
[2024-02-20 07:10] LABS: INR 0.96; PARTIAL THROMBOPLASTIN TIME 23.5 SECONDS (24.8-34.2); PROTHROMBIN TIME 12.5 SECONDS (12.5-14.5)
[2024-02-20] MEDS: MORPHINE 4 MG/ML 1ML VIAL IV ONE (08:25)
[2024-02-20] MEDS ORDERED: ATIV1TAB10 PO (10:06)
[2024-02-20] MEDS ORDERED: DULO1CAP5 PO (10:06)
[2024-02-20] MEDS ORDERED: HOME MED LIST COMPLETE! XX SCH (10:10)
[2024-02-20] MEDS: NS 1,000 ML IV SCH (10:18)
[2024-02-20] MEDS ORDERED: fentaNYL 100 MCG/2 ML INJECTION As Ordered ONE (12:49)
[2024-02-20] MEDS ORDERED: MIDAZOLAM INJ 2MG/2ML VIAL As Ordered ONE (12:50)
[2024-02-20] MEDS ORDERED: LIDOCAINE 2% 100MG/5ML SDV (FOR ANES.) As Ordered ONE (12:51)
[2024-02-20] MEDS ORDERED: propofoL 200 MG/20 ML VIAL As Ordered ONE (12:51)
[2024-02-20] MEDS ORDERED: ROCURONIUM BROMIDE 50MG/5ML VIAL As Ordered ONE (13:04)
[2024-02-20] MEDS: ceFAZolin 2 GM/D5W 50 ML IV BAG As Ordered ONE (13:25)
[2024-02-20] MEDS ORDERED: ONDANSETRON 4MG 2ML VIAL As Ordered ONE (13:26)
[2024-02-20] MEDS ORDERED: ACETAMINOPHEN 1000MG 100ML IV BAG As Ordered ONE (13:27)
[2024-02-20] MEDS ORDERED: ePHEDrine SULFATE 25 MG/5 ML(5MG/ML) SYRINGE As Ordered ONE (13:29)
[2024-02-20] MEDS ORDERED: PHENYLephrine 500MCG 5ML (100MCG/ML) SYRINGE As Ordered ONE (13:29)
[2024-02-20] MEDS ORDERED: SUGAMMADEX SODIUM 500 MG/5 ML VIAL (BRIDION) As Ordered ONE (13:42)
[2024-02-20] MEDS ORDERED: fentaNYL 100 MCG/2 ML INJECTION IV PRN (14:05)
[2024-02-20] MEDS ORDERED: MEPERIDINE 25 MG/ML 1ML VIAL IV PRN (14:05)
[2024-02-20] MEDS ORDERED: ONDANSETRON 4MG 2ML VIAL IV PRN (14:05)
[2024-02-20] MEDS: HYDROMORPHONE HCL 0.5 MG/ 0.5 ML SYRINGE IV PRN (14:26)
[2024-02-20] MEDS: PERCOCET 5MG/325MG TAB PO PRN (14:27)
[2024-02-20] MEDS: DULoxetine 30MG CAPSULE (CYMBALTA) PO SCH (20:45)
[2024-02-20] MEDS: HEPARIN SOD (PORCINE) 5000UNITS/ML 1ML VIAL/SYRINGE SC SCH (20:45)
[2024-02-20] MEDS: ceFAZolin SOD 2 GM in IV 1 EA IV SCH (20:45)
[2024-02-20] MEDS ORDERED: LORazepam 0.5 MG TAB PO SCH (21:00)
[2024-02-20] MEDS: ALBUTEROL SULFATE 2.5MG/0.5ML INH NEB SOLN INH ONE (22:19)
[2024-02-20] MEDS: ACETAMINOPHEN TAB 650MG DOSE (2X325MG) PO PRN (23:35)
[2024-02-21 01:05] VITALS: BP 115/67; TEMP 98.2; O2SAT 91
[2024-02-21] MEDS: KETOROLAC 30 MG/ML 1ML VIAL IV ONE (01:26)
[2024-02-21 05:00] VITALS: BP 99/62; TEMP 98.1; O2SAT 94
[2024-02-21 06:05] LABS: BASO % 0.2 % (0.0-1.0); EOS % 0.2 % (0.0-3.0); HEMATOCRIT 30.6 % (36.0-47.0); HEMOGLOBIN 10.1 g/dl (12.0-15.5); LYMPH # 1.2 10^3/uL (1.5-5.0); LYMPH % 17.8 % (24.0-44.0); MEAN CORPUSCULAR HEMOGLOBIN 30.6 pg (27.0-33.0); MEAN CORPUSCULAR VOLUME 92.7 fl (80.0-96.0); MONO # 0.8 10^3/uL (0.0-0.8); MONO % 11.5 % (2.0-8.0); NEUTROPHILS # 4.7 10^3/uL (1.5-8.5); NEUTROPHILS % 70.1 % (36.0-66.0); PLATELET COUNT, AUTOMATED 167 10^3/uL (150-450); WHITE BLOOD COUNT 6.6 10^3/uL (4.0-10.0)
[2024-02-21 06:27] LABS: BLOOD UREA NITROGEN 13 MG/DL (9-23); CALCIUM LEVEL 8.1 MG/DL (8.3-10.6); CARBON DIOXIDE LEVEL 26 MMOL/L (20-31); CHLORIDE LEVEL 106 MMOL/L (98-107); CREATININE FOR GFR 0.56 MG/DL (0.55-1.30); GLOMERULAR FILTRATION RATE > 60.0 (>39); GLUCOSE, FASTING 129 MG/DL (74-106); MAGNESIUM LEVEL 1.7 MG/DL (1.8-2.4); POTASSIUM SERUM 4.1 MMOL/L (3.5-5.1); SODIUM LEVEL 138 MMOL/L (136-145)
[2024-02-21] MEDS ORDERED: MAGNESIUM OXIDE 400MG TAB (MAG-OX) PO ONE (07:35)
[2024-02-21] MEDS: MAG SULF 1GM/100ML (MAG RUN) 1 GM in IV 1 EA IV ONE (08:08)
[2024-02-21] MEDS: oxyCODONE 5MG TAB PO PRN ×2 (09:09→13:09)
[2024-02-21 10:06] VITALS: BP 102/65; O2SAT 94
[2024-02-21 12:21] VITALS: BP 110/66; TEMP 97.7; O2SAT 97
[2024-02-21] MEDS ORDERED: DEXMETHYLPHENIDATE 10 MG PO SCH (21:00)
[2024-02-21 21:48] VITALS: BP 116/66; TEMP 97.7; O2SAT 96
[2024-02-22 04:38] VITALS: BP 115/66; TEMP 97.5; O2SAT 97
[2024-02-22 07:20] LABS: BASO % 0.5 % (0.0-1.0); EOS # 0.1 10^3/uL (0.0-0.5); EOS % 1.6 % (0.0-3.0); HEMOGLOBIN 9.5 g/dl (12.0-15.5); LYMPH # 1.2 10^3/uL (1.5-5.0); LYMPH % 19.1 % (24.0-44.0); MEAN CORPUSCULAR HEMOGLOBIN 31.1 pg (27.0-33.0); MEAN CORPUSCULAR HGB CONC 32.8 g/dl (32.0-36.5); MEAN CORPUSCULAR VOLUME 95.1 fl (80.0-96.0); MONO # 0.8 10^3/uL (0.0-0.8); MONO % 13.4 % (2.0-8.0); NEUTROPHILS % 65.2 % (36.0-66.0); PLATELET COUNT, AUTOMATED 150 10^3/uL (150-450); RED BLOOD COUNT 3.05 10^6/uL (4.00-5.40); WHITE BLOOD COUNT 6.2 10^3/uL (4.0-10.0)
[2024-02-22 07:45] LABS: BLOOD UREA NITROGEN 12 MG/DL (9-23); CALCIUM LEVEL 7.8 MG/DL (8.3-10.6); CARBON DIOXIDE LEVEL 30 MMOL/L (20-31); CHLORIDE LEVEL 105 MMOL/L (98-107); GLOMERULAR FILTRATION RATE > 60.0 (>39); GLUCOSE, FASTING 116 MG/DL (74-106); MAGNESIUM LEVEL 1.8 MG/DL (1.8-2.4); POTASSIUM SERUM 4.1 MMOL/L (3.5-5.1); SODIUM LEVEL 139 MMOL/L (136-145)
[2024-02-22] MEDS ORDERED: OXYC-517 PO ×2 (10:58→11:04)
[2024-02-22 12:27] VITALS: BP 115/65; TEMP 97.9; O2SAT 96
== END 2024-02-22 14:25 | disposition home health service (06) | DRG 482 ==
LOC: M ED 06:10 → M ED INP 09:00 → M MS5PR 15:34
PROVIDERS: ADMIT Internal Medicine; ATTEND Internal Medicine
PROC: 0QS736Z Reposition Left Upper Femur with Intramedullary Internal Fixation Device, Percutaneous Approach (ICD-10-PCS; principal; 2024-02-20 13:00)
DX: S72.142A Displaced intertrochanteric fracture of left femur, initial encounter for closed fracture (principal); W18.09XA Striking against other object with subsequent fall, initial encounter; Y92.013 Bedroom of single-family (private) house as the place of occurrence of the external cause; Y93.89 Activity, other specified; Y99.8 Other external cause status; F32.A Depression, unspecified; F90.9 Attention-deficit hyperactivity disorder, unspecified type; Z79.899 Other long term (current) drug therapy

== ENCOUNTER → 2024-02-29 | Outpatient (CLI) | payer MEDICARE ==
[~2024-02-29] MED LIST changes: +ATIV1TAB10 PO; +DULO1CAP5 PO; +OXYC-517 PO
== END ==
LOC: M SOG 07:53
PROVIDERS: ATTEND Physician Assistant
DX: Z47.89 Encounter for other orthopedic aftercare (principal); M25.552 Pain in left hip

== ENCOUNTER → 2024-04-08 | Outpatient (CLI) | payer MEDICARE | LOC: M SOG 07:53 | PROVIDERS: ATTEND Physician Assistant | DX: Z47.89 Encounter for other orthopedic aftercare (principal); M25.552 Pain in left hip ==

== ENCOUNTER 2024-07-11 17:23 | Emergency (ER) | payer MEDICARE ==
[~2024-07-11] VITALS: Ht 167.6 cm; Wt 59.0 kg
[2024-07-11] MEDS: LIDOCAINE 1% MDV 20ML VIAL SC ONE (18:45)
[2024-07-11] MEDS: BOOSTRIX VACCINE (TETANUS/DIPHTH/ACEL. PERTUSSIS) 0.5ML SYR IM.IMMUN ONE (19:16)
[2024-07-11] MEDS ORDERED: CEPH500C PO (19:59)
[2024-07-11] MEDS: CEPHALEXIN 500 MG CAP PO ONE (20:31)
[2024-07-11 20:36] VITALS: BP 128/87; TEMP 97.7; O2SAT 100
[2024-07-11] MEDS: ACETAMINOPHEN 500 MG TAB PO ONE (20:37)
== END 2024-07-11 21:21 | disposition home or self-care (01) ==
LOC: M ED 17:23
DX: S92.355B Nondisplaced fracture of fifth metatarsal bone, left foot, initial encounter for open fracture (principal); S91.312A Laceration without foreign body, left foot, initial encounter; Y92.019 Unspecified place in single-family (private) house as the place of occurrence of the external cause; Y93.9 Activity, unspecified; Y99.9 Unspecified external cause status; F41.9 Anxiety disorder, unspecified; F32.A Depression, unspecified; F10.10 Alcohol abuse, uncomplicated; Z23 Encounter for immunization; Z79.2 Long term (current) use of antibiotics; Z79.899 Other long term (current) drug therapy

== ENCOUNTER → 2024-07-23 | Outpatient (CLI) | payer MEDICARE ==
[~2024-07-23] MED LIST changes: +CEPH500C PO
== END ==
LOC: M SOG 07:50
PROVIDERS: ATTEND Physician Assistant
DX: S92.355D Nondisplaced fracture of fifth metatarsal bone, left foot, subsequent encounter for fracture with routine healing (principal)

== ENCOUNTER → 2025-01-24 | Outpatient (CLI) | payer MEDICARE ==
[2025-01-24 08:40] LABS: ALBUMIN 3.3 G/DL (3.2-5.2); ALKALINE PHOSPHATASE 83 U/L (35-104); ALT/SGPT 19 U/L (7.0-40); AST/SGOT 20 U/L (<34); BILIRUBIN,TOTAL 0.5 MG/DL (0.3-1.2); BLOOD UREA NITROGEN 12 MG/DL (9-23); CALCIUM LEVEL 8.9 MG/DL (8.3-10.6); CARBON DIOXIDE LEVEL 28 MMOL/L (20-31); CHLORIDE LEVEL 107 MMOL/L (98-107); CHOLESTEROL LEVEL 239 MG/DL (<200); CREATININE FOR GFR 0.59 MG/DL (0.55-1.30); GLOMERULAR FILTRATION RATE > 90.0 (>39); GLUCOSE, FASTING 96 MG/DL (74-106); HDL CHOLESTEROL 70.2 MG/DL (>40); LDL CHOLESTEROL 154.2 MG/DL (<100); NON-HDL-C 168.8 MG/DL; POTASSIUM SERUM 4.1 MMOL/L (3.5-5.1); SODIUM LEVEL 142 MMOL/L (136-145); TOTAL PROTEIN 6.8 G/DL (5.7-8.2); TRIGLYCERIDES LEVEL 73 MG/DL (<150)
== END ==
LOC: M LAB 07:38
PROVIDERS: ATTEND Student in an Organized Health Care Education/Training Program
DX: E78.5 Hyperlipidemia, unspecified (principal)

== ENCOUNTER → 2025-03-21 | Outpatient (REF) | payer MEDICARE ==
[2025-03-21 16:47] LABS: BASO # 0.1 10^3/uL (0.0-0.2); BASO % 0.9 % (0.0-1.0); EOS # 0.1 10^3/uL (0.0-0.5); EOS % 1.2 % (0.0-3.0); LYMPH # 1.4 10^3/uL (1.5-5.0); LYMPH % 24.2 % (24.0-44.0); MONO # 0.5 10^3/uL (0.0-0.8); MONO % 8.9 % (2.0-8.0); NEUTROPHILS # 3.6 10^3/uL (1.5-8.5); NEUTROPHILS % 64.6 % (36.0-66.0); PLATELET COUNT, AUTOMATED 231 10^3/uL (150-450)
[2025-03-21 16:56] LABS: ERYTHROCYTE SEDIMENTATION RATE 35 mm/hr (0-30)
[2025-03-21 17:11] LABS: THYROXINE (T4) 9.0 UG/DL (4.5-10.9)
[2025-03-21 17:13] LABS: C REACTIVE PROTEIN QUANTITATIV < 0.50 MG/DL (<1.0); TOTAL 25(OH) VITAMIN D 53.0 NG/ML (20.0-100.0)
[2025-03-21 17:14] LABS: ALT/SGPT 18 U/L (7.0-40); AST/SGOT 22 U/L (<34); CALCIUM LEVEL 9.1 MG/DL (8.3-10.6); CARBON DIOXIDE LEVEL 27 MMOL/L (20-31); CHLORIDE LEVEL 103 MMOL/L (98-107); CREATININE FOR GFR 0.73 MG/DL (0.55-1.30); FREE T4 1.29 NG/DL (0.89-1.76); GLOMERULAR FILTRATION RATE 86.2 (>39); IRON (FE) 85 UG/DL (50-170); MAGNESIUM LEVEL 2.2 MG/DL (1.8-2.4); PERCENT SATURATION 27.0 % (13.2-45.0); PHOSPHORUS LEVEL 3.2 MG/DL (2.4-5.1); POTASSIUM SERUM 4.4 MMOL/L (3.5-5.1); SODIUM LEVEL 139 MMOL/L (136-145)
[2025-03-21 17:15] LABS: VITAMIN B12 LEVEL 318 PG/ML (211-911)
[2025-03-21 17:20] LABS: ESTIMATED AVERAGE GLUCOSE 94.0 MG/DL (60-110)
[2025-03-21 17:21] LABS: T UPTAKE 41.9 % (22.5-37.0); THYROGLOBULIN ANTIBODY 18.0 U/ML (<60.0)
== END ==
LOC: M LAB 15:54
PROVIDERS: ATTEND Nurse Practitioner Family
DX: F41.1 Generalized anxiety disorder (principal); F41.0 Panic disorder [episodic paroxysmal anxiety]; R53.82 Chronic fatigue, unspecified; E55.9 Vitamin D deficiency, unspecified; D51.8 Other vitamin B12 deficiency anemias; E78.49 Other hyperlipidemia; E28.2 Polycystic ovarian syndrome; E66.3 Overweight; Z79.899 Other long term (current) drug therapy

== ENCOUNTER → 2025-06-12 | Outpatient (CLI) | payer MEDICARE ==
[2025-06-12 09:56] LABS: BASO # 0.1 10^3/uL (0.0-0.2); BASO % 0.9 % (0.0-1.0); EOS # 0.1 10^3/uL (0.0-0.5); EOS % 1.5 % (0.0-3.0); LYMPH # 1.2 10^3/uL (1.5-5.0); LYMPH % 20.7 % (24.0-44.0); MONO # 0.5 10^3/uL (0.0-0.8); MONO % 9.2 % (2.0-8.0); NEUTROPHILS # 3.9 10^3/uL (1.5-8.5); NEUTROPHILS % 67.5 % (36.0-66.0); PLATELET COUNT, AUTOMATED 213 10^3/uL (150-450)
[2025-06-12 10:21] LABS: ALT/SGPT 15 U/L (7.0-40); AST/SGOT 15 U/L (<34); CALCIUM LEVEL 9.1 MG/DL (8.3-10.6); CARBON DIOXIDE LEVEL 29 MMOL/L (20-31); CHLORIDE LEVEL 105 MMOL/L (98-107); CHOLESTEROL LEVEL 211 MG/DL (<200); CHOLESTEROL RISK RATIO 3.41 (<5); CREATININE FOR GFR 0.60 MG/DL (0.55-1.30); GLOMERULAR FILTRATION RATE > 90.0 (>39); LDL CHOLESTEROL 140.6 MG/DL (<100); NON-HDL-C 149.2 MG/DL; POTASSIUM SERUM 4.4 MMOL/L (3.5-5.1); SODIUM LEVEL 138 MMOL/L (136-145); TRIGLYCERIDES LEVEL 43 MG/DL (<150)
[2025-06-12 10:22] LABS: RHEUMATOID FACTOR QUANT 24.9 IU/ML (<14)
[2025-06-12 10:23] LABS: TOTAL 25(OH) VITAMIN D 35.4 NG/ML (20.0-100.0)
== END ==
LOC: M LAB 09:05
PROVIDERS: ATTEND Nurse Practitioner
DX: E78.5 Hyperlipidemia, unspecified (principal); M05.79 Rheumatoid arthritis with rheumatoid factor of multiple sites without organ or systems involvement; E55.9 Vitamin D deficiency, unspecified; R53.82 Chronic fatigue, unspecified

== ENCOUNTER → 2025-09-08 | Outpatient (CLI) | payer MEDICARE | LOC: M WHC 07:48 | PROVIDERS: ATTEND Physician Assistant | DX: K76.0 Fatty (change of) liver, not elsewhere classified (principal); K86.2 Cyst of pancreas; K76.89 Other specified diseases of liver; K59.00 Constipation, unspecified; K92.1 Melena; R14.3 Flatulence; R14.0 Abdominal distension (gaseous) ==